=== PATIENT | female | born 1955 | race Caucasian/White ===

== ENCOUNTER 2024-10-17 10:12 | Emergency (ER) | payer MEDICAID ==
[~2024-10-17] VITALS: Ht 162.6 cm; Wt 57.0 kg
[2024-10-17 10:16] VITALS: TEMP 98.5; O2SAT 99
[2024-10-17] MEDS ORDERED: ACET-2708 MT (12:27)
[2024-10-17] MEDS ORDERED: IBUP-2030 MT (12:27)
[2024-10-17 12:35] VITALS: BP 143/80; PULSE 64; RESP 18
[2024-10-17] MEDS: KETOROLAC 30MG/ML VIAL IM NR (12:35)
== END 2024-10-17 12:53 | disposition home or self-care (01) ==
LOC: ER 10:12
DX: S42.301A Unspecified fracture of shaft of humerus, right arm, initial encounter for closed fracture (principal); I10 Essential (primary) hypertension; E11.9 Type 2 diabetes mellitus without complications; Z88.0 Allergy status to penicillin; W19.XXXA Unspecified fall, initial encounter; Y93.01 Activity, walking, marching and hiking; Y92.89 Other specified places as the place of occurrence of the external cause; Y99.8 Other external cause status
CPT/HCPCS: 73030; 96372; 99283; J1885; Z7610